=== PATIENT | female | born 1985 | race African-American/Black ===

== ENCOUNTER 2017-07-17 22:13 | Observation (INO) | payer SELFPAY ==
[~2017-07-17] VITALS: Ht 160 cm; Wt 55.5 kg
[2017-07-17 22:27] VITALS: Ht 160 cm; Wt 55.5 kg
--- NOTE | 2017-07-17 22:41 | ERA ---
ER Documentation Chief Complaint Date/Time DATE: 07/17/17 TIME: 22:38 Chief Complaint bleeding clots vaginally,LMP 7/2, belly cramps HPI Otherwise healthy 32-year-old female with no past medical history or past surgical history who is and 11 weeks by ultrasound presents with a chief complaints of lower pelvic pain and bleeding 1 day. Patient states that the bleeding is brown in color. Pain is described as dull in the center of the pelvic area. Has taken no medications to relieve the symptoms. Denies fever, chest pain, shortness of breath, nausea, vomiting, diarrhea or constipation. No recent travel. Vaccination status up-to-date. Patient has no other complaints and describes no other associated manifestations. Nursing notes have been reviewed and are consistent with history given. ROS All systems reviewed and are negative except as per history of present illness. Allergies Allergies: Coded Allergies: No Known Allergy (Unverified , 07/17/17) PMhx/Soc Medical and Surgical Hx: pt denies Medical Hx, pt denies Surgical Hx Anesthesia Reaction: No Hx Neurological Disorder: No Hx Respiratory Disorders: No Hx Cardiac Disorders: No Hx Psychiatric Problems: No Hx Miscellaneous Medical Probl: No Hx Alcohol Use: No Hx Substance Use: No Hx Tobacco Use: No Physical Exam Vitals Vital Signs Date Time Temp Pulse Resp B/P Pulse Ox O2 Delivery O2 Flow Rate FiO2 07/18/17 05:27 99.0 85 20 115/66 99 Room Air 07/18/17 03:30 98.3 76 18 124/67 99 Room Air 07/18/17 02:45 71 18 135/74 07/17/17 22:27 98.0 90 18 140/74 100 Physical Exam Const: [] Head: Atraumatic Eyes: Normal Conjunctiva ENT: Normal External Ears, Nose and Mouth. Neck: Full range of motion..~ No meningismus. Resp: Clear to auscultation bilaterally Cardio: Regular rate and rhythm, no murmurs Abd: Mild suprapubic tenderness. Fundal height not appreciable. Soft, non tender, non distended. Normal bowel sounds Skin: No petechiae or rashes Back: No CVA tenderness. No midline or flank tenderness Ext: No cyanosis, or edema. Posterior tibial pulses 2+ bilaterally Neur: Awake and alert Psych: Normal Mood and Affect Result Diagram: 07/18/17 0408 07/17/17 2313 Results 24 hrs Laboratory Tests Test 07/17/17 22:36 07/17/17 23:13 07/17/17 23:14 07/18/17 01:40 Urine Color YELLOW Urine Clarity CLEAR Urine pH 5.0 Urine Specific [place] 1.019 Urine Ketones NEGATIVEmg/dL Urine Nitrite NEGATIVEmg/dL Urine Bilirubin NEGATIVEmg/dL Urine Urobilinogen NEGATIVEmg/dL Urine Leukocyte Esterase NEGATIVELeu/ul Urine Microscopic RBC 1/HPF Urine Microscopic WBC 1/HPF Urine Squamous Epithelial Cells FEW/HPF Urine Hemoglobin 3+mg/dL Urine Glucose NEGATIVEmg/dL Urine Total Protein NEGATIVEmg/dl Sodium Level 141mmol/L Potassium Level 3.5mmol/L Chloride Level 107mmol/L Carbon Dioxide Level 24mmol/L Anion Gap 14 Blood Urea Nitrogen 11mg/dl Creatinine 0.77mg/dl Glucose Level 94mg/dl Calcium Level 9.2mg/dl Total Bilirubin 0.2mg/dl Direct Bilirubin 0.00mg/dl Indirect Bilirubin 0.2mg/dl Aspartate Amino Transf (AST/SGOT) 23IU/L Alanine Aminotransferase (ALT/SGPT) 26IU/L Alkaline Phosphatase 49IU/L Total Protein 8.1g/dl Albumin 4.3g/dl Globulin 3.80g/dl Albumin/Globulin Ratio 1.13 White Blood Count 11.210^3/ul Red Blood Count 4.0810^6/ul Hemoglobin 12.8g/dl Hematocrit 38.1% Mean Corpuscular Volume 93.4fl Mean Corpuscular Hemoglobin 31.4pg Mean Corpuscular Hemoglobin Concent 33.6g/dl Red Cell Distribution Width 12.6% Platelet Count 20348^3/UL Mean Platelet Volume 10.5fl Neutrophils % 69.2% Lymphocytes % 23.5% Monocytes % 6.1% Eosinophils % 0.5% Basophils % 0.3% Nucleated Red Blood Cells % 0.0/100WBC Neutrophils # 7.810^3/ul Lymphocytes # 2.610^3/ul Monocytes # 0.710^3/ul Eosinophils # 0.110^3/ul Basophils # 0.010^3/ul Nucleated Red Blood Cells # 0.010^3/ul Beta HCG, Quantitative 6932.5mIU/ml Prothrombin Time 13.0Sec Prothrombin Time Ratio 1.0 INR International Normalized Ratio 0.98 Activated Partial Thromboplast Time 34.4Sec Test 07/18/17 04:08 Hemoglobin 12.7g/dl Hematocrit 36.8% Current Medications Medications (Trade) Dose Ordered Sig/Aston Route PRN Reason Start Time Stop Time Status Last Admin Dose Admin Acetaminophen (Tylenol Tab) 650 mg ONCE STAT PO 07/17/17 22:44 07/17/17 22:46 DC 07/17/17 22:59 Famotidine (Pepcid Iv) 20 mg ONCE ONCE IV 07/18/17 01:30 07/18/17 01:31 DC 07/18/17 02:05 Morphine Sulfate (morphine) 4 mg ONCE STAT IV 07/18/17 01:29 07/18/17 01:30 DC 07/18/17 02:05 Hydromorphone HCl 0.5 mg 0.5 mg ONCE STAT IV 07/18/17 02:32 07/18/17 02:34 DC 07/18/17 02:46 Lactated Ringer's (Lr) 1,000 ml @ 125 mls/hr Q8H IV 07/18/17 03:09 07/18/17 03:41 Hydromorphone HCl (Dilaudid) 2 mg Q3H PRN IV pain 07/18/17 03:30 07/18/17 03:42 Procedures/MDM 32-year-old female presents with the chief complaints of lower pelvic pain and vaginal bleeding 1-2 days as described in history and physical examination. Acetaminophen given with inadequate relief of symptoms. 4 mg IV morphine given with more adequate relief of symptoms. CBC: WBC 11.2. HCT 36.8. PT/PTT: WNL CMP: WNL Beta-hCG : At 11 weeks gestation by history: 6932.5 at 23:14. 4392.3 at 04:08 Urinalysis: Unremarkable Dr. Hernandez was consulted and came to evaluate the patient herself. Patient will be handed into her care. 0.5 mg IV Dilaudid was ordered at her request. Second beta hCG ordered for 0700. Departure Diagnosis: Primary Impression: Vaginal bleeding in patient at less than 20 weeks gestation Condition: Stable Additional Instructions: Patient had intensive care of Dr. Hernandez. JONNATHAN GONSALEZ PA-C Jul 17, 2017 22:41
[2017-07-17] MEDS ORDERED: ACETAMINOPHEN 325 MG TAB PO STA (22:44)
[2017-07-17 23:34] LABS: BASOPHILS % 0.3 % (0.0-2.0); EOSINOPHILS # 0.1 10^3/ul (0.0-0.5); EOSINOPHILS % 0.5 % (0.0-7.0); HEMATOCRIT 38.1 % (37.0-47.0); HEMOGLOBIN 12.8 g/dl (12.0-16.0); LYMPHOCYTES # 2.6 10^3/ul (0.8-2.9); LYMPHOCYTES % 23.5 % (15.0-51.0); MEAN CORPUSCULAR HEMOGLOBIN 31.4 pg (29.0-33.0); MEAN CORPUSCULAR HGB CONC 33.6 g/dl (32.0-37.0); MEAN CORPUSCULAR VOLUME 93.4 fl (82.0-101.0); MEAN PLATELET VOLUME 10.5 fl (7.4-10.4); MONOCYTE # 0.7 10^3/ul (0.3-0.9); MONOCYTES % 6.1 % (0.0-11.0); NEUTROPHIL # 7.8 10^3/ul (1.6-7.5); NEUTROPHILS % 69.2 % (39.0-77.0); PLATELET COUNT 220 10^3/UL (140-415); RED BLOOD COUNT 4.08 10^6/ul (4.20-5.40); RED CELL DISTRIBUTION WIDTH 12.6 % (11.5-14.5); WHITE BLOOD COUNT 11.2 10^3/ul (4.8-10.8)
[2017-07-17 23:56] LABS: ADD UMIC YES; UR ASCORBIC ACID NEGATIVE (NEGATIVE); UR BILIRUBIN (Dip) NEGATIVE (NEGATIVE); UR BLOOD (Dip) 3+ mg/dL (NEGATIVE); UR CLARITY CLEAR (CLEAR); UR COLOR YELLOW (YELLOW); UR GLUCOSE (Dip) NEGATIVE (NEGATIVE); UR KETONES (Dip) NEGATIVE (NEGATIVE); UR LEUKOCYTE ESTERASE (Dip) NEGATIVE Leu/ul (NEGATIVE); UR NITRITE (Dip) NEGATIVE (NEGATIVE); UR RBC 1 /HPF (0-5); UR SPECIFIC GRAVITY (Dip) 1.019 (1.003-1.030); UR SQUAMOUS EPITHELIAL CELL FEW /HPF (FEW); UR TOTAL PROTEIN (Dip) NEGATIVE (NEGATIVE); UR UROBILINOGEN (Dip) NEGATIVE (NEGATIVE)
--- NOTE | 2017-07-18 00:36 | RADRPT ---
PROCEDURE: US OB. CLINICAL INDICATION: . Vaginal bleeding. TECHNIQUE: Multiple sonographic images of the pelvis were obtained. Transabdominal and transvagin al views of the pelvis are available for review. The images were reviewed on a PACS workstation. COMPARISON: No prior studies are available for comparison. FINDINGS: Uterus is enlarged at 14.7 x 11.8 x 9.2 cm. No intrauterine gestational sac, pole or heart mo tion is identified. The endometrium is slightly heterogeneous and thickened and measures 13.2 mm. There are multiple heterogeneous uterine masses consistent with fibroids, largest 4.9 x 6.0 x 6.17. Uterus is otherwise unremarkable. The ovaries are normal in size and echogenicity with normal vascu lar flow. Right ovary is 4 x 2.4 x 2.5 cm. Left ovary 3.3 x 1.7 x 2.9 cm. The adnexa are unremarka ble. There is no adnexal mass. There is no free fluid. IMPRESSION: 1. No live intrauterine identified. Slightly heterogeneous and thickened endometrium. C onsiderations include a missed , early intrauterine and ectopic . No adn exal mass or free fluid to suggest ectopic although this cannot be excluded. 2. Enlarged uterus with masses compatible fibroids. RPTAT: HMVK .Dre Garcia MD, Date Time Electronically viewed and signed by .Dre Garcia MD, MD on 07/18/2017 00:36 .K/
[2017-07-18] MEDS ORDERED: morphine 4 MG/ML VIAL IV STA (01:29)
[2017-07-18] MEDS ORDERED: FAMOTIDINE 20 MG INJ IV ONE (01:30)
[2017-07-18 02:04] LABS: INR 0.98
[2017-07-18 02:05] LABS: PARTIAL THROMBOPLASTIN TIME 34.4 Sec (25.0-35.0)
[2017-07-18] MEDS ORDERED: HYDROmorphONE 1 MG/ML SYG IV STA (02:32)
[2017-07-18 02:52] LABS: ALBUMIN 4.3 g/dl (3.3-4.9); ALBUMIN/GLOBULIN RATIO 1.13; BILIRUBIN,INDIRECT 0.2 mg/dl (0-1.1); BILIRUBIN,TOTAL 0.2 mg/dl (0.2-1.3); CALCIUM 9.2 mg/dl (8.4-10.2); CREATININE 0.77 mg/dl (0.44-1.00); POTASSIUM 3.5 mmol/L (3.5-5.1); TOTAL PROTEIN 8.1 g/dl (6.1-8.1)
--- NOTE | 2017-07-18 03:08 | HP ---
Date/Time of Note Date/Time of Note DATE: 07/18/17 TIME: 02:54 Assessment/Plan VTE Prophylaxis VTE Prophylaxis Intervention: ambulation, SCD's Lines/Catheters IV [facility]ter Type [facility]): Peripheral IV Central line still needed: No Urinary Cath still in place: No Assessment/Plan Chief Complaint/Hosp Course Vaginal bleeding, crampy lower abdominal pain. No evidence of IUP. HCG is discriminatory. Per patient had a confirmed IUP and prior ultrasound at 11 weeks with no cardiac activity. Uterus empty with no evidence of . No adnexal mass. Multiple fibroid uterus. Cannot rule out early miscarriage versus ectopic. Based on patient's history had a confirmed IUP. There is high likelihood of miscarriage if the patient's history is reliable. Currently patient is hemodynamically stable. We will admit the patient to MedSurg unit. Will recheck HCG after 8 hours for the trend. If the HCG showed sudden drop that will correlate with more miscarriage. Plan to obtain her prior ultrasound report from [facility] in a.m. Patient will be kept n.p.o. Discussed with the patient other option of proceeding with D&C if prior ultrasound report is unavailable, If there is any evidence of villi was found in frozen that confirms miscarriage , she may be a candidate for methotrexate if she remains clinically stable and pain-free versus diagnostic laparoscopy at the same time during D&C. Patient verbalized understanding All questions were answered Problems: Assessment/Plan Vaginal bleeding, crampy lower abdominal pain. No evidence of IUP. HCG is discriminatory. Per patient had a confirmed IUP and prior ultrasound at 11 weeks with no cardiac activity. Uterus empty with no evidence of . No adnexal mass. Multiple fibroid uterus. Cannot rule out early miscarriage versus ectopic. Based on patient's history had a confirmed IUP. There is high likelihood of miscarriage if the patient's history is reliable. Currently patient is hemodynamically stable. We will admit the patient to MedSurg unit. Will recheck HCG after 8 hours for the trend. If the HCG showed sudden drop that will correlate with more miscarriage. Plan to obtain her prior ultrasound report from [facility] in a.m. Patient will be kept n.p.o. Discussed with the patient other option of proceeding with D&C if prior ultrasound report is unavailable, If there is any evidence of villi was found in frozen that confirms miscarriage , she may be a candidate for methotrexate if she remains clinically stable and pain-free versus diagnostic laparoscopy at the same time during D&C. Patient verbalized understanding All questions were answered HPI/ROS Admit Date/Time Admit Date/Time July 18, 2017 Hx of Present Illness 33-year-old with amenorrhea for 12 weeks. She presented to emergency room with complaint of light brown vaginal discharge since yesterday that increased in the month today with also passing large blood clots while she was in the emergency room prior and after pelvic ultrasound done. Patient reports that she had an diagnosed intrauterine at 11 weeks and 6 days with nonvisualization of the cardiac activity about a week ago by ultrasound done in the [facility] ordered by women clinic that she plans to do her care. Patient reports that she was told by her WAREHOUSE SHIPPING SUPERVISOR and needs to have follow-up with serum test for hCG level. Patient currently presented with also abdominal pain. Per patient pain is crampy. Comes and goes. she denies any dizziness, lightheadedness, shortness of breath or chest pain. She had a pelvic ultrasound here in the emergency room that did not show any evidence of IUP and there was normal bilateral ovaries. Her hCG level is 3500. There is no clear evidence of adnexal mass or free fluid in the pelvis. I was consulted by ED attending for LACING OPERATOR evaluation. ROS Subjective hx not possible: other Constitutional: no complaints Eyes: no complaints ENT: no complaints Respiratory: no complaints Cardiovascular: no complaints Gastrointestinal: blood, pain Genitourinary: no complaints Musculoskeletal: no complaints Skin: no complaints Neurologic: no complaints Endocrine: no complaints Lymphatic: no complaints Psychological: no complaints Immunologic: no complaints PMH/Family/Social Past Medical History Medical History: no pertinent history Past Surgical History Past Surgical Hx: no surgical history Family History Significant Family History: no pertinent family hx Social History Patient denies of smoking drinking or using any drugs Alcohol Use: none Drug Use: none Exam/Review of Systems Vital Signs Vitals Vital Signs Date Time Temp Pulse Resp B/P Pulse Ox O2 Delivery O2 Flow Rate FiO2 07/17/17 22:27 98.0 90 18 140/74 100 Exam Constitutional: alert, distress (Patient appears to be in moderate distress when she has crampy pain), oriented Psych: nl mood/affect, no complaints Head: atraumatic, normocephalic Eyes: EOMI, nl conjunctiva ENMT: nl external ears & nose Neck: supple Respiratory: clear to auscultation, normal air movement Cardiovascular: nl pulses, regular rate and rhythm Gastrointestinal: other (There is an large midline pelvic mass the size about 16-18 weeks in the midline and firm consistent with fibroid uterus. There is some voluntary guarding on palpation of the uterus. There is no rebound tenderness, no rigidity), tender Genitourinary - Female: other (Assessment: Examination: Scant amount of brownish blood in the vault. Cervix appears to be normal. Cervix firm. Bimanual examination uterus about 16-18 weeks size. Firm and consistent with fibroid uterus. Uterus bulky. Exam is limited due to large fibroid uterus.) Extremities: normal pulses Neurological: nl mental status, nl speech, nl strength Skin: nl turgor, rash or lesions Labs Result Diagram: 07/17/17 2314 Procedures Procedures PROCEDURE: US OB. CLINICAL INDICATION: . Vaginal bleeding. TECHNIQUE: Multiple sonographic images of the pelvis were obtained. Transabdominal and transvaginal views of the pelvis are available for review. The images were reviewed on a PACS workstation. COMPARISON: No prior studies are available for comparison. FINDINGS: Uterus is enlarged at 14.7 x 11.8 x 9.2 cm. No intrauterine gestational sac, pole or heart motion is identified. The endometrium is slightly heterogeneous and thickened and measures 13.2 mm. There are multiple heterogeneous uterine masses consistent with fibroids, largest 4.9 x 6.0 x 6.17. Uterus is otherwise unremarkable. The ovaries are normal in size and echogenicity with normal vascular flow. Right ovary is 4 x 2.4 x 2.5 cm. Left ovary 3.3 x 1.7 x 2.9 cm. The adnexa are unremarkable. There is no adnexal mass. There is no free fluid. IMPRESSION: 1. No live intrauterine identified. Slightly heterogeneous and thickened endometrium. Considerations include a missed , early intrauterine and ectopic . No adnexal mass or free fluid to suggest ectopic although this cannot be excluded. 2. Enlarged uterus with masses compatible fibroids. RPTAT: KIMBERLI FRIEND MD Jul 18, 2017 03:08
[2017-07-18] MEDS: LACTATED RINGER'S 1,000 ML IV SCH ×2 (03:41→11:09)
[2017-07-18] MEDS: HYDROmorphONE 2 MG/ML SYG IV PRN ×2 (03:42→06:15)
[2017-07-18 04:35] LABS: HEMATOCRIT 36.8 % (37.0-47.0); HEMOGLOBIN 12.7 g/dl (12.0-16.0)
[2017-07-18 05:27] VITALS: TEMP 99
[2017-07-18 06:04] VITALS: PULSE 79
[2017-07-18] MEDS ORDERED: PREN1TAB17 PO (06:29)
[2017-07-18 08:00] VITALS: BP 127/62; RESP 18
[2017-07-18 14:00] VITALS: BP 122/62; RESP 20
--- NOTE | 2017-07-18 15:43 | QN ---
Documentation Comment Discharge summary This patient is 33 years old 2 para 0 1 who,s last menstrual period was in April 25, 2017. she had one ultrasound study about 2 weeks ago in her conference producer's office which showed intrauterine of about 9 weeks with no heart tone . She started having vaginal bleeding and was admitted in the hospital. The ultrasound revealed multiple uterine fibroid and empty uterus, she was admitted for further follow-up. Her beta hCG from 6000 dropped to 4392 this morning On pelvic examination there is slight vaginal bleeding, uterus is enlarged due to fibroids, cervix is now closed, bleeding is fairly minimal, no tenderness. She does not have any fever. I called her conference producer's office regarding previous ultrasound result which was done about a week ago. study confirmed intrauterine of about 9 weeks with no heart activity. Due to lack of vaginal bleeding and ultrasound report which showed empty uterus her situation were discussed with her. . She will be discharged home to return to emergency room in 2 days to repeat the beta hCG and possibly repeat ultrasound. I mentioned to her that she should not have intercourse at least for 2 weeks and return to emergency room in case of heavy bleeding, fever or any other discomfort Laboratory Tests Test 07/17/17 22:36 07/17/17 23:13 07/17/17 23:14 07/18/17 01:40 Urine Color YELLOW Urine Clarity CLEAR Urine pH 5.0 Urine Specific [place] 1.019 Urine Ketones NEGATIVEmg/dL Urine Nitrite NEGATIVEmg/dL Urine Bilirubin NEGATIVEmg/dL Urine Urobilinogen NEGATIVEmg/dL Urine Leukocyte Esterase NEGATIVELeu/ul Urine Microscopic RBC 1/HPF Urine Microscopic WBC 1/HPF Urine Squamous Epithelial Cells FEW/HPF Urine Hemoglobin 3+mg/dL Urine Glucose NEGATIVEmg/dL Urine Total Protein NEGATIVEmg/dl Sodium Level 141mmol/L Potassium Level 3.5mmol/L Chloride Level 107mmol/L Carbon Dioxide Level 24mmol/L Anion Gap 14 Blood Urea Nitrogen 11mg/dl Creatinine 0.77mg/dl Glucose Level 94mg/dl Calcium Level 9.2mg/dl Total Bilirubin 0.2mg/dl Direct Bilirubin 0.00mg/dl Indirect Bilirubin 0.2mg/dl Aspartate Amino Transf (AST/SGOT) 23IU/L Alanine Aminotransferase (ALT/SGPT) 26IU/L Alkaline Phosphatase 49IU/L Total Protein 8.1g/dl Albumin 4.3g/dl Globulin 3.80g/dl Albumin/Globulin Ratio 1.13 White Blood Count 11.210^3/ul Red Blood Count 4.0810^6/ul Hemoglobin 12.8g/dl Hematocrit 38.1% Mean Corpuscular Volume 93.4fl Mean Corpuscular Hemoglobin 31.4pg Mean Corpuscular Hemoglobin Concent 33.6g/dl Red Cell Distribution Width 12.6% Platelet Count 19538^3/UL Mean Platelet Volume 10.5fl Neutrophils % 69.2% Lymphocytes % 23.5% Monocytes % 6.1% Eosinophils % 0.5% Basophils % 0.3% Nucleated Red Blood Cells % 0.0/100WBC Neutrophils # 7.810^3/ul Lymphocytes # 2.610^3/ul Monocytes # 0.710^3/ul Eosinophils # 0.110^3/ul Basophils # 0.010^3/ul Nucleated Red Blood Cells # 0.010^3/ul Beta HCG, Quantitative 6932.5mIU/ml Prothrombin Time 13.0Sec Prothrombin Time Ratio 1.0 INR International Normalized Ratio 0.98 Activated Partial Thromboplast Time 34.4Sec Test 07/18/17 04:08 Hemoglobin 12.7g/dl Hematocrit 36.8% Beta HCG, Quantitative 4392.3mIU/ml Current Medications Medications (Trade) Dose Ordered Sig/Aston Route PRN Reason Start Time Stop Time Status Last Admin Dose Admin Acetaminophen (Tylenol Tab) 650 mg ONCE STAT PO 07/17/17 22:44 07/17/17 22:46 DC 07/17/17 22:59 Famotidine (Pepcid Iv) 20 mg ONCE ONCE IV 07/18/17 01:30 07/18/17 01:31 DC 07/18/17 02:05 Morphine Sulfate (morphine) 4 mg ONCE STAT IV 07/18/17 01:29 07/18/17 01:30 DC 07/18/17 02:05 Hydromorphone HCl 0.5 mg 0.5 mg ONCE STAT IV 07/18/17 02:32 07/18/17 02:34 DC 07/18/17 02:46 Lactated Ringer's (Lr) 1,000 ml @ 125 mls/hr Q8H IV 07/18/17 03:09 07/18/17 03:41 Hydromorphone HCl (Dilaudid) 2 mg Q3H PRN IV pain 07/18/17 03:30 07/18/17 06:15 Influenza Virus Vaccine (Fluzone) 0.5 ml ONCE ONCE IM* 07/19/17 13:30 07/19/17 13:31 Both her and her understand her situation and she will be followed in her conference producer clinic and if needed she can come back to emergency room RADHA STERN MD Jul 18, 2017 15:42
[2017-07-19] MEDS ORDERED: INFLUENZA VIRUS VACCINE 0.5 ML SYG IM* ONE (13:30)
== END 2017-07-18 16:05 | disposition home or self-care (01) ==
LOC: FTE 22:13 → PP2 07-18 07:01
PROVIDERS: ADMIT Family Medicine; ATTEND Family Medicine
DX: O02.1 Missed abortion (principal); D25.9 Leiomyoma of uterus, unspecified; N85.2 Hypertrophy of uterus; R93.8 Abnormal findings on diagnostic imaging of other specified body structures
CPT/HCPCS: 76801; 80053; 81001; 84702; 85014; 85018; 85025; 85610; 85730; 86850; 86900; 86901; 87086; 99217; J1170; J2270; J7120; G0378

== ENCOUNTER 2017-07-22 11:15 | Emergency (ER) | payer MEDICAID ==
[~2017-07-22] VITALS: Ht 160 cm; Wt 65.5 kg
[~2017-07-22 11:15] MED LIST: PREN1TAB17 PO
[2017-07-22 11:35] VITALS: Ht 160 cm; Wt 65.5 kg
--- NOTE | 2017-07-22 12:18 | ERD ---
ER Documentation Chief Complaint Date/Time DATE: 07/22/17 TIME: 12:16 Chief Complaint WAS TOLD TO RETURN FOR RE-CHECK AFTER MISCARRIED HPI 32-year-old female who is with history of 1 with last mental period on April 25, 2017 presents for recheck for possible miscarriage. She had an ultrasound done on July 17, there was no evidence of an IUP and her hCG was approximately 6000. Dr. Crow advised that the patient come back for recheck of hCG. She apparently had an IUP seen in the office with Dr. Arce not have the results. She has been having a light amount of vaginal bleeding, she had cramping pain for 2 days after she left but no pain at this time. She denies fevers or chills, dizziness, chest pain, shortness of breath. ROS All systems reviewed and are negative except as per history of present illness. Medications Home Meds Reported Medications Vit-Iron Fumarate-FA ( Tablet) 1 Each Tablet, 1 TAB PO DAILY, TAB 07/18/17 Allergies Allergies: Coded Allergies: chloroquine (Unverified Adverse Reaction, Mild, ITCHING, 07/18/17) PMhx/Soc History of Surgery: No Anesthesia Reaction: No Hx Neurological Disorder: No Hx Respiratory Disorders: No Hx Cardiac Disorders: No Hx Psychiatric Problems: No Hx Miscellaneous Medical Probl: No Hx Alcohol Use: No Hx Substance Use: No Hx Tobacco Use: No Physical Exam Vitals Vital Signs Date Time Temp Pulse Resp B/P Pulse Ox O2 Delivery O2 Flow Rate FiO2 07/22/17 11:35 97.9 74 18 155/59 100 Physical Exam General: Well-developed, well-nourished. The patient appears in no acute distress. HEENT: Head is normocephalic, atraumatic. No scleral icterus. Neck: Supple. Nontender. Lungs: Clear to auscultation. Normal air movement. Heart: Regular rate and rhythm. S1 and S2 are normal. No murmurs, gallops, or rubs. Abdomen: Nondistended. Tender, no masses. No peritoneal signs or guarding. Extremities: No clubbing or cyanosis. Moving extremities x 4. No weakness. Neurologic: Alert and oriented 3. No focal deficits. Normal speech and gait. Skin: Normal turgor. No rash or lesions. Results 24 hrs Laboratory Tests Test 07/22/17 12:26 Beta HCG, Quantitative 425.2mIU/ml PROCEDURE: US Pelvis CLINICAL INDICATION: , pain, follow-up TECHNIQUE: Multiple sonographic images of the pelvis were obtained utilizing a transabdominal and endovaginal technique. The images were reviewed on a PACS workstation. COMPARISON: Obstetrical ultrasound from 07/17/2017 LMP: 04/25/2017 FINDINGS: The uterus measures 8.0 x 9.4 x 8.7 cm. The endometrial echo complex measures 10 mm in thickness, compared with up to 13 mm previously. There is trace endocervical fluid. Multiple uterine fibroids are identified measuring up to 5.4 cm. There is a 5.4 cm posterior submucosal uterine fibroid at the level of the fundus without significant displacement of the endometrium. There is a 4.5 cm anterior subserosal uterine fibroid at the level of the mid to lower uterine body. There is a 2.7 cm anterior submucosal uterine fibroid at the level of the mid body with prominent posterior displacement of the endometrium. The right ovary measures 3.5 x 1.7 x 2.3 cm. The left ovary measures 3.9 x 1.7 x 1.9 cm. There is normal vascular flow in both ovaries. No significant ovarian lesions are seen. No significant pelvic free fluid is identified. IMPRESSION: There is decreased thickening of the endometrium to 10 mm, compared with up to 13 mm previously, without evidence of an intrauterine although trace endocervical fluid is identified. A viable intrauterine and an ectopic are still not excluded. Correlation with serial Beta HCG levels is recommended. Multiple uterine fibroids are identified measuring up to 5.4 cm, as above. RPTAT: EE Signed By: Shreyas Sweeney MD 07/22/2017 1:28:27 PM Procedures/MDM Medical decision m[age]-year-old female presents emergency room for recheck of her beta quant, it was 4300 approximately on July 18. The patient's beta quantitative hCG has decreased from approximately 4300, and is approximately 450 at this time. It has decreased as expected, most consistent with a complete miscarriage. Patient's ultrasound also shows that the endometrium is less thick with previous ultrasound. There is no evidence of hemodynamic instability, infection, retained products. Patient was given copies of all ultrasounds, and blood work from the previous visit and today, to follow-up with her OB Dr Arce. Departure Diagnosis: Primary Impression: Miscarriage Condition: Good ESEQUIEL RIVERS PA-C Jul 22, 2017 12:18
[2017-07-22 14:07] VITALS: BP 117/77; PULSE 64; RESP 16; TEMP 98
== END 2017-07-22 14:06 | disposition home or self-care (01) ==
LOC: FTE 11:15
DX: O03.9 Complete or unspecified spontaneous abortion without complication (principal)
CPT/HCPCS: 36415; 76856; 84702; Z7502